=== PATIENT | female | born 2005 | race African-American/Black ===

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

== ENCOUNTER 2025-01-18 10:03 | Outpatient (AMB) | payer OTHER, SELFPAY ==
--- NOTE | 2025-01-18 10:08 | A.SCHOOL_ITS ---
Intake Vital Signs 01/18/25 10:45 Height 5 ft 2 in Weight 110 lb BMI 20.1 BP 98/72 Blood Pressure Location Lt brachial Respiration 18 Pulse 104 H Temp 98.3 F Pulse Oximetry (%) 99 Intake Visit Reasons: Physical Allergies No Known Allergies Allergy (Verified 12/09/24 21:53) HPI HPI Comments History of Present Illness Details Here for a PE. Moved to [place] last year. Lives with mom, sister, brother and cousin. Healthy. Reports irregular menses. Also mentions some intermittent chest discomfort- happens for 5-8 seconds at a time. Denies irregular HR, or other CV symptoms. Not taking medicine. No allergies. Doing well in school. Has some friend who are [place] at school. PCP at [facility]. 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 Reports having a dentist. Would like an research test engine operator and to see an Eye Likes [place] food best; eats healthy overall. Goes to the [facility] to exercise. CONFIDENTIAL: Has a GF, is sexually active- uses protection. She is an adult- almost 20 yo; she denies having a trusted adult. [place] magnetic locater for entire visit- ANGELIQUE Smith- [id number] [facility] Family History (Updated 01/19/25 @ 10:58 by SANTANA Michelle) Maternal Aunt Diabetes Maternal Uncle Diabetes Heart disease Social History (Updated 01/19/25 @ 10:56 by SANTANA Michelle) Household Members Other:: mom,sister, brother and cousin Sexually active: Yes Sexual orientation: Lesbian/Santiago/Homosexual Questionnaire PHQ-9: Modified for Teens Feeling down, depressed, irritable or hopeless?: Not at all Little interest or pleasure in doing things?: Not at all Trouble falling asleep, staying asleep, or sleeping too much?: Not at all Poor appetite, weight loss or overeating?: Not at all Feeling tired, or having little energy?: Not at all Feeling bad about yourself-or feeling that you are a failure, or that you let yourself/your family down?: Not at all Trouble concentrating on things like school work, reading, or watching TV?: Not at all Moving/speaking so slowly that other people have noticed? Or the opposite-being so fidgety that you were moving more than usual?: Not at all Thoughts that you would be better off , or of hurting yourself in some way?: Not at all In the past year have you felt depressed or sad most days, even if you felt okay sometimes?: No How difficult have these problems made it for you to do your work, take care of things at home, or get along with other?: Not difficult at all Has there been a time in the past month when you have had serious thoughts about ending your life?: No Have you ever, in your entire life, tried to kill yourself or made a suicide attempt?: No Score: 0 Depression Screening Interpretation: Negative Depression Screening Done: Yes PHQ Assessment Billing PHQ Assessment Tool: PHQ Assessment 60495 AADM-7 AMB Questionnaire ADAM-7 Feeling nervous, anxious, or on edge: 0 = Not at all Not being able to stop or control worryin = Not at all Worrying too much about different things: 0 = Not at all Trouble relaxin = Not at all Being so restless that it is hard to sit still: 0 = Not at all Becoming easily annoyed or irritable: 0 = Not at all Feeling afraid as if something awful might happen: 0 = Not at all Total ADAM-7 score (0-4 normal; 5-9 mild; 10-14 moderate; 15-21 severe): 0 Source: Developed by Drs. Jose Jackson, Belgica Spencer, Candelario Cabrera and colleagues, with an educational yael from [employer]. ADAM-7 Assessment Billing ADAM-7 Assessment Tool: ADAM-7 Assessment 91179 CRAFFT Screening Tool PART A: In the PAST 12 MONTHS, did you: Drink any alcohol (more than few sips)? (Do not count sips of alcohol taken during family or advent events.): No Smoke any marijuana or hashish?: No Use anything else to get high? (includes illegal drugs, over the counter/prescription drugs, or things that you sniff/leiva?): No PART B: If answered YES to ANY above: Have you ever been in a CAR driven by someone (including yourself) who was high or had been using alcohol or drugs?: No Review of Systems Const Reports no additional complaints Eyes Reports no additional complaints ENT Reports no additional complaints Card Reports no additional complaints Resp Reports no additional complaints GI Reports no additional complaints Reports as per HPI and Reports abnormal menses Neuro Reports no additional complaints Psych Reports no additional complaints Physical exam (School Based) Vital Signs: Last Vital Signs Temp 98.3 F 01/18/25 10:45 Pulse 104 H 01/18/25 10:45 Resp 18 01/18/25 10:45 BP 98/72 01/18/25 10:45 Pulse Ox 99 01/18/25 10:45 Depression Screening Interpretation: Negative Const General: cooperative, healthy appearing and comfortable Orientation/consciousness: oriented to person, oriented to place and oriented to time HENMT Head: Yes normal to inspection Ears: TM's normal bilaterally General nose exam: Normal external nose present and Normal nasal mucous membranes and turbinates present Mouth: Normal oral and palatal mucosa present and oropharynx normal Teeth and gingiva: dentition normal Eyes Other: 20/25 Snellen bilateral eyes General: appearance normal, both eyes and all related structures Pupils: Equal, round and reactive pupils present Neck Neck: Yes normal visual inspection and Yes no lymphadenopathy Thyroid: Thyroid normal Resp Effort & Inspection: normal respiratory effort Auscultation: clear to auscultation bilaterally Cardio Rate: regular rate GI Inspection: Yes normal to inspection Palpation (GI): Soft to palpation and nontender Auscultation: normal bowel sounds Skin Other: shaven coarse hair on anterior neck Neuro General: oriented to person, oriented to place and oriented to time Cranial nerves: Yes Equal, round and reactive pupils present Deep tendon reflexes (DTR's): Right patellar reflex intensity grade: 2+ and Left patellar reflex intensity grade: 2+ Extrem General: Yes normal to inspection Psych Appearance: grossly normal Assessment and Plan Assessment & Plan (1) Physical exam: Comment: Healthy on exam- recommending f/u with PCP and BLEACHING MACHINE OPERATOR- would recommend blood work given irregular menses and hair growth on neck. TB testing also recommended. Will place referrals with community health worker for specialty care. CONFIDENTIAL: Discussed overall health and continued safe sex practices Code(s): Z00.00 - Encounter for general adult medical examination without abnormal findings (2) Irregular menses: Comment: see above; needs f/u with BLEACHING MACHINE OPERATOR Code(s): N92.6 - Irregular menstruation, unspecified (3) Vision changes: Comment: Recommending eye exam- has some trouble with distance vision Code(s): H53.9 - Unspecified visual disturbance Coding Level of Care Code New Pt Level 5 (45592) Diagnoses Physical exam Z00.00 Irregular menses N92.6 Vision changes H53.9 Additional Codes ADAM-7 Assessment Billing - ADAM-7 Assessment Tool: ADAM-7 Assessment 07729 ([id number]) PHQ Assessment Billing - PHQ Assessment Tool: PHQ Assessment 14175 ([id number]) Time Spent (min) 60 Comment magnetic locater- Jenny Smith- [id number]
[2025-01-18 10:45] VITALS: BP 98/72; PULSE 104; RESP 18; TEMP 36.8; O2SAT 99; BMI 20.1
== END 2025-01-18 10:15 | disposition home or self-care (01) ==
LOC: HO.SBHN 10:03
PROVIDERS: Visit Provider Nurse Practitioner Family
DX: N92.6 Irregular menstruation, unspecified (principal); H53.9 Unspecified visual disturbance; Z13.30 Encounter for screening examination for mental health and behavioral disorders, unspecified
CPT/HCPCS: 99205

== ENCOUNTER → 2025-01-18 10:03 | Outpatient (BNVA) | payer MEDICAID, SELFPAY | PROVIDERS: Visit Provider Nurse Practitioner Family | DX: H53.9 Unspecified visual disturbance (principal); Z00.00 Encounter for general adult medical examination without abnormal findings; N92.6 Irregular menstruation, unspecified | CPT/HCPCS: 96127; 99202 ==

== ENCOUNTER 2025-01-20 12:44 | Outpatient (AMB) | payer MEDICAID, SELFPAY ==
[2025-01-20 13:00] VITALS: BP 104/76; PULSE 109; RESP 18; TEMP 37.4; O2SAT 99
--- NOTE | 2025-01-20 13:36 | A.SCHOOL_ITS ---
Intake Vital Signs 01/20/25 13:00 BP 104/76 Blood Pressure Location Rt brachial Respiration 18 Pulse 109 H Temp 99.4 F Pulse Oximetry (%) 99 Intake Visit Reasons: Stomach pain Allergies No Known Allergies Allergy (Verified 12/09/24 21:53) HPI HPI Comments History of Present Illness Details Here today due to very bad abdominal pains. Pain 10/10. Upper stomach pain worse; also pain all over. The pain is constant. No fever. No nausea, vomiting or diarrhea. Denies any difficulty urinating or having a BM. No known sick contacts. Did not eat anything out of the ordinary in the last day. Pain started about 2 hrs ago and has worsened. Not currently having menstruating. (CONFIDENTIAL: sexually active, female partner). 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 [facility] Family History (Updated 01/19/25 @ 10:58 by SANTANA Michelle) Maternal Aunt Diabetes Maternal Uncle Diabetes Heart disease Social History (Updated 01/19/25 @ 10:56 by SANTANA Michelle) Household Members Other:: mom,sister, brother and cousin Sexual orientation: Lesbian/Santiago/Homosexual Review of Systems Const Reports as per HPI ENT Reports no additional complaints Card Reports no additional complaints Resp Reports no additional complaints GI Reports as per HPI Reports as per HPI Physical exam (School Based) Const Other: when coming to office clearly very uncomfortable General: cooperative and healthy appearing HENMT Mouth: Normal oral and palatal mucosa present and oropharynx normal Eyes General: appearance normal, both eyes and all related structures Neck Neck: Yes normal visual inspection and Yes no lymphadenopathy Resp Effort & Inspection: normal respiratory effort Auscultation: clear to auscultation bilaterally Cardio Rate: tachycardic and Other (mildly elevated HR) Rhythm: regular rhythm GI Inspection: Yes normal to inspection Palpation (GI): Soft to palpation and Tenderness to palpation present (GI) (generalized tenderness, pain worse over epigastric region) Assessment and Plan Assessment & Plan (1) Abdominal pain: Comment: Having significant belly pains. No other symptoms. Most likely the beginning of a viral illness. Given the severity of symptoms discussed signs to watch for: continued severe pain, increasing pain; pain over RLQ, vomiting, inability to eat/ drink, fever. If pains are not improving over the next hour would recommend going to the ER. Resting in office and lying down now. No ride available to pick her up from school. Jeanine rested for an hour in the office. After this time she no longer had belly pains and appeared much more comfortable. Helped her gather her things for leaving school. Advised to seek medical attention if severe belly pains develop again. Code(s): R10.9 - Unspecified abdominal pain Qualifiers: Abdominal location: generalized Qualified Code(s): R10.84 - Generalized abdominal pain Coding Level of Care Code Est Pt Level 4 (28658) Diagnoses Generalized abdominal pain R10.84 Abdominal location: generalized Time Spent (min) 45 Comment Jenny Creole school manager Amber [id number]
== END 2025-01-20 12:52 | disposition home or self-care (01) ==
LOC: HO.SBHN 12:44
PROVIDERS: Visit Provider Nurse Practitioner Family
DX: R10.84 Generalized abdominal pain (principal)
CPT/HCPCS: 99214

== ENCOUNTER → 2025-01-20 12:44 | Outpatient (BNVA) | payer MEDICAID, SELFPAY | PROVIDERS: Visit Provider Nurse Practitioner Family | DX: R10.84 Generalized abdominal pain (principal) | CPT/HCPCS: 99212 ==